=== PATIENT | male | born 1975 | race Caucasian/White ===

== ENCOUNTER 2018-09-07 23:03 | Emergency (ER) | payer BC ==
[2018-09-07] MEDS ORDERED: PROPARACAINE HCL OPTH 15ML BTL OPTH ONE (23:06)
[2018-09-07] MEDS ORDERED: KETOROLAC 0.5% OPTH STA (23:09)
[2018-09-07] MEDS ORDERED: OPTH OPTH STA (23:09)
[2018-09-07] MEDS ORDERED: ERYTHROMYCIN OPTH OINT 3.5GM OPTH ONE (23:09)
--- NOTE | 2018-09-07 23:26 | Emergency Department Record ---
History of Present Illness - General Chief complaint: Eye Problem Stated complaint: EYE PAIN Time Seen by Provider: 09/07/18 23:06 Source: Patient Mode of Arrival: Ambulatory Limitations: No limitations - History of Present Illness Initial comments: 43 yo male presents with bilateral red irritated eyes. He is a contact wearer. He placed his contacts in a cleaning solution this morning that is peroxide based (Clear Eye Plus HydraGlyde). He did not read the directions then placed the contacts back in his eyes without rinsing. He wore the contacts for several hours. Gradually over the day his eyes became irritated and red. He removed his contact about 2pm. His eye doctor is [facility] in [place]. chief complaint: Eye pain, Eye redness -: Hour(s) Onset Description: Gradual Location: Both eyes Place: Home If Injury: Chemical exposure Eye Symptoms: Burning Severity: Moderate If Pain, Quality: Aching Consistency: Constant Context: Contact lens use Associated Symptoms: None Treatments Prior to Arrival: None - Related Data Home Medications Medication Instructions Recorded Confirmed Last Taken No Home Med [NO HOME MEDS] 09/07/18 09/07/18 Unknown Allergies Allergy/AdvReac Type Severity Reaction Status Date / Time No Known Drug Allergies Allergy Verified 09/07/18 23:16 Review of Systems Constitutional: Denies: Chills, Fever, Malaise, Weakness Eyes: Reports: Eye discharge (clear), Eye pain, Photophobia ENT: Reports: Congestion Respiratory: Reports: Cough Cardiovascular: Denies: Chest pain, Syncope Endocrine: Denies: Fatigue Gastrointestinal: Denies: Diarrhea, Nausea, Vomiting Genitourinary: Denies: Dysuria, Frequency Musculoskeletal: Denies: Arthralgia Skin: Denies: Bruising, Rash Neurological: Denies: Headache Psychiatric: Denies: Anxiety Hematological/Lymphatic: Denies: Easy bleeding, Easy bruising Physical Exam - General General Appearance: Alert, Oriented x3, Cooperative, No acute distress Limitations: No limitations - Head Head exam: Atraumatic, Normal inspection - Eye Eye exam: PERRL, Conjunctival injection, EOMI. negative: Normal appearance, Periorbital swelling Pupils: Normal accommodation. negative: Irregular, Unequal - ENT ENT exam: Normal exam Ear exam: Normal external inspection Nasal Exam: Normal inspection Mouth exam: Normal external inspection - Neck Neck exam: Normal inspection - Neurological Neurological exam: Alert, Oriented X3 - Psychiatric Psychiatric exam: Normal affect, Normal mood - Skin Skin exam: Dry, Intact, Normal color, Warm Course Vital Signs 09/07/18 23:09 Temperature 98.2 F Pulse Rate [ 80 Pulse Ox Probe] Respiratory 20 Rate Blood Pressure 142/93 [Left Arm] Pulse Ox 94 L - Reevaluation(s) Reevaluation #1: Slit Lamp Alcaine applied with good relief Clear bilateral AC Clear tears No obvious visible surface defect BioGel Stain applied Mild diffuse punctate uptake, no large areas, ulcers or abrasions. Left was worse than right. Erythromycin provided 09/07/18 23:31 Disposition Disposition: Discharge Clinical Impression: Chemical conjunctivitis of both eyes Disposition: Home, Self-Care Condition: (1) Good Instructions: Chemical Eye Cuevas (ED) Additional Instructions: Apply the erythromcyin ointment to the eye every 4 hours Do not put your contacts back in until the pain is gone Call your eye doctor tomorrow for a recheck to ensure the eyes are healing. Forms: Patient Portal Access Time of Disposition: 23:28 Quality - Quality Measures Quality Measures: N/A - Blood Pressure Screening Does Patient Have Any of the Following: No Blood Pressure Classification: Pre-Hypertensive BP Reading Systolic Measurement: 134 Diastolic Measurement: 83 Screening for High Blood Pressure: < Pre-Hypertensive BP, F/U Documented > [ [id number]] Pre-Hypertensive Follow-up Interventions: Referral to alternative/primary care provider.
== END 2018-09-07 23:46 | disposition home or self-care (01) ==
LOC: ER 23:03
DX: H10.213 Acute toxic conjunctivitis, bilateral (principal); T49.5X5A Adverse effect of ophthalmological drugs and preparations, initial encounter
CPT/HCPCS: 99283